=== PATIENT | female | born 1970 | race Caucasian/White ===

== ENCOUNTER 2018-11-17 15:17 | Outpatient (CLI) | payer OTHER ==
--- NOTE | 2018-11-17 16:21 | XRay Report ---
FINAL REPORT EXAM: XR KNEE 3V LT HISTORY: PAIN TECHNIQUE: Left knee three views PRIORS: None. FINDINGS: No fracture is identified. No dislocation seen. No evidence of joint effusion. Patella demonstrates n ormal positioning. No acute bony abnormality identified. IMPRESSION: Negative knee series
--- NOTE | 2018-11-17 16:22 | XRay Report ---
FINAL REPORT EXAM: XR SPINE CERVICAL 2-3V HISTORY: PAIN TECHNIQUE: Cervical spine three views PRIORS: None. FINDINGS: There is incomplete fusion C5-C6 vertebral bodies. This appears congenital. Remaining disc spaces are unremarkable. No acute fracture or malalignment identified. Posterior elements appear intact IMPRESSION: . Congenital variant with incomplete fusion C5-C6 No acute abnormality identified
== END 2018-11-17 15:18 | disposition home or self-care (01) ==
LOC: XRAY 15:17
DX: M43.22 Fusion of spine, cervical region (principal); M25.562 Pain in left knee; I10 Essential (primary) hypertension; E11.9 Type 2 diabetes mellitus without complications; Z90.49 Acquired absence of other specified parts of digestive tract
CPT/HCPCS: 72040

== ENCOUNTER 2022-01-16 09:14 | Emergency (ER) | payer BC, OTHER ==
[2022-01-16] MEDS ORDERED: KETOROLAC 10 MG TAB PO ONE (09:27)
[2022-01-16] MEDS ORDERED: CYCLOBENZAPRINE 10 MG TAB PO ONE (09:27)
[2022-01-16] MEDS ORDERED: DEXAMETHASONE 4 MG TAB PO ONE (09:27)
[2022-01-16 10:55] LABS: HCG Qualitative,Urine Negative (Negative)
[2022-01-16 10:59] LABS: Bilirubin,Urine NEG (Negative); Blood,Urine NEG (Negative); Color,Urine Straw (Yellow); Mucus,Urine FEW /HPF; Protein,Urine <15 mg/dL mg/dL (Negative); Urobilinogen,Urine < 2.0 mg/dL (<2.0)
[2022-01-16] MEDS ORDERED: CYCLOBENZAPRINE 10 MG TAB ONE (12:11)
[2022-01-16] MEDS ORDERED: KETOROLAC 10 MG TAB ONE ×2 (12:12)
--- NOTE | 2022-01-16 12:14 | Emergency Department Report ---
ED Back Pain/Injury HPI - General Chief Complaint: Back Pain/Injury Stated Complaint: LEFT SIDE PAIN Source: patient Limitations: No Limitations - History of Present Illness Initial Comments: Patient is a 51-year-old female with a history of hypertension, [id number] diabetes and anxiety and depression who presents to the ED with acute onset persistent nontraumatic left-sided mid posterior thoracic pain for the last 2 days. Patient states that she woke up with the pain and despite taking ibuprofen at home and Tylenol the pain has been persistent and worse especially with movement. Patient denies fall, traumatic injury, cough, chest pain or shortness of breath, nausea and vomiting, dysuria, urinary frequency and urgency, heavy lifting, fever, chills, numbness and tingling or weakness of upper and lower extremities bilaterally or abdominal pain. MD Complaint: back pain -: Sudden, days(s) (2) Similar Symptoms Previously: No Place: home Radiation: none Severity: severe Severity scale (0 -10): 7 Quality: sharp, aching Consistency: constant Improves With: none Worsens With: movement, walking Context: turning/twisting Associated Symptoms: denies other symptoms. denies: confusion, chest pain, numbness, difficulty walking, cough, difficulty urinating, diaphoresis, incontinence, constipation, headaches, abdominal pain, loss of appetite, rash, seizure, syncope - Related Data Previous Rx's Medication Instructions Recorded Last Taken Type Famotidine [Pepcid] 20 mg PO BID #28 tablet 07/25/17 Unknown Rx Ondansetron [Zofran TAB] 4 mg PO Q8HR PRN #12 tablet 07/25/17 Unknown Rx levoFLOXacin [Levaquin TAB] 500 mg PO Q24HR #7 tablet 07/25/17 Unknown Rx Naproxen Sodium [Naproxen Sodium 550 mg PO Q12H PRN #30 tab 01/16/22 Unknown Rx 550mg] methOCARBAMOL [Robaxin TAB] 750 mg PO Q8H PRN #30 tab 01/16/22 Unknown Rx traMADoL [Ultram] 50 mg PO Q6HR PRN #12 tablet 01/16/22 Unknown Rx Allergies Allergy/AdvReac Type Severity Reaction Status Date / Time No Known Allergies Allergy Verified 01/16/22 09:31 ED Review of Systems ROS: Stated complaint: LEFT SIDE PAIN Other details as noted in HPI Constitutional: denies: chills, fever Eyes: denies: eye pain, eye discharge, vision change ENT: denies: ear pain, throat pain Respiratory: denies: cough, shortness of breath, wheezing Cardiovascular: denies: chest pain, palpitations Endocrine: no symptoms reported Gastrointestinal: denies: abdominal pain, nausea, vomiting, diarrhea Genitourinary: denies: urgency, dysuria, discharge Musculoskeletal: back pain (Left sided mid posterior thoracic pain). denies: joint swelling, arthralgia Skin: denies: rash, lesions Neurological: denies: headache, weakness, paresthesias Psychiatric: denies: anxiety, depression Hematological/Lymphatic: denies: easy bleeding, easy bruising ED Past Medical Hx - Past Medical History Previous Medical History?: Yes Hx Hypertension: Yes Hx Congestive Heart Failure: No Hx Diabetes: Yes Hx Psychiatric Treatment: Yes (depression) Hx Asthma: No Hx COPD: No - Surgical History Hx Cholecystectomy: Yes Hx Appendectomy: Yes Additional Surgical History: Umbilical hernia repair - Social History Smoking Status: Never Smoker Substance Use Type: None - Medications Home Medications: Home Medications Medication Instructions Recorded Confirmed Last Taken Type Famotidine [Pepcid] 20 mg PO BID #28 tablet 07/25/17 Unknown Rx Ondansetron [Zofran TAB] 4 mg PO Q8HR PRN #12 tablet 07/25/17 Unknown Rx levoFLOXacin [Levaquin TAB] 500 mg PO Q24HR #7 tablet 07/25/17 Unknown Rx Naproxen Sodium [Naproxen Sodium 550 mg PO Q12H PRN #30 tab 01/16/22 Unknown Rx 550mg] methOCARBAMOL [Robaxin TAB] 750 mg PO Q8H PRN #30 tab 01/16/22 Unknown Rx traMADoL [Ultram] 50 mg PO Q6HR PRN #12 tablet 01/16/22 Unknown Rx ED Physical Exam - General Limitations: No Limitations General appearance: alert, in no apparent distress - Head Head exam: Present: atraumatic, normocephalic, normal inspection - Eye Eye exam: Present: normal appearance, PERRL, EOMI Pupils: Present: normal accommodation - ENT ENT exam: Present: normal exam, normal orophraynx, mucous membranes moist, TM's normal bilaterally, normal external ear exam - Neck Neck exam: Present: normal inspection, full ROM. Absent: tenderness - Respiratory Respiratory exam: Present: normal lung sounds bilaterally. Absent: respiratory distress, wheezes, rales, chest wall tenderness, accessory muscle use, decreased breath sounds, prolonged expiratory - Cardiovascular Cardiovascular Exam: Present: regular rate, normal rhythm, normal heart sounds. Absent: systolic murmur, diastolic murmur, rubs, gallop - GI/Abdominal GI/Abdominal exam: Present: soft, normal bowel sounds. Absent: tenderness, guarding, rebound, hyperactive bowel sounds, hypoactive bowel sounds, organomegaly - Extremities Exam Extremities exam: Present: normal inspection, full ROM, normal capillary refill. Absent: tenderness, pedal edema, joint swelling, calf tenderness - Back Exam Back exam: Present: normal inspection, full ROM, tenderness (Palpable left-sided mid posterior thoracic paraspinal musculoskeletal tenderness), muscle spasm, pa raspinal tenderness. Absent: CVA tenderness (R), CVA tenderness (L), vertebral tenderness - Neurological Exam Neurological exam: Present: alert, oriented X3, CN II-XII intact, normal gait, reflexes normal - Psychiatric Psychiatric exam: Present: normal affect, normal mood - Skin Skin exam: Present: warm, dry, intact, normal color. Absent: rash ED Course Vital Signs 01/16/22 09:28 Temperature 97.9 F Pulse Rate 98 H Respiratory 18 Rate Blood Pressure 167/87 O2 Sat by Pulse 100 Oximetry ED Medical Decision Making - Medical Decision Making This is a 51-year-old female with a history of hypertension, loz-[id number] diabetes and anxiety and depression who presents to the ED with acute onset persistent nontraumatic left-sided mid posterior thoracic pain for the last 2 days. Patient states that she woke up with the pain and despite taking ibuprofen at home and Tylenol the pain has been persistent and worse especially with movement. In the ED, patient is alert and oriented x3 and is not in any distress. Urinalysis is unremarkable. Based on the history and physical exam findings, the patient symptoms are likely due to musculoskeletal muscle strain or muscle spasm. Patient was discharged home on pain medications and muscle relaxants and advised to follow-up with her primary care physician in 7 to 10 days for reevaluation or return to the ED immediately if symptoms get worse. - Differential Diagnosis Muscle spasm; muscle strain; UTI Critical care attestation.: If time is entered above; I have spent that time in minutes in the direct care of this critically ill patient, excluding procedure time. ED Disposition Clinical Impression: Spasm of thoracic back muscle, Strain of muscle and tendon of back wall of thorax, initial encounter Disposition: 01 HOME / SELF CARE / HOMELESS Is pt being admited?: No Does the pt Need Aspirin: No Condition: Stable Instructions: Muscle Cramps and Spasms, [id number], Muscle Strain, [id number] Additional Instructions: Es probable que sree sntomas greta musculoesquelticos, ya que no hubo traumatismo, levantamiento de objetos pesados ??ni cada. Por lo tanto, tome la medicacin con alimentos, pineda muchos lquidos y cherry un seguimiento con arthur mdico de atencin primaria en 7 a 10 garcia para balta reevaluacin. Regrese al servicio de urgencias inmediatamente si los sntomas empeoran. Prescriptions: Naproxen Sodium [Naproxen Sodium 550mg] 550 mg PO Q12H PRN #30 tab PRN Reason: Pain , Severe (7-10) methOCARBAMOL [Robaxin TAB] 750 mg PO Q8H PRN #30 tab PRN Reason: Muscle Spasm traMADoL [Ultram] 50 mg PO Q6HR PRN #12 tablet PRN Reason: Pain Referrals: [facility] [Provider Group] - 3-5 Days Time of Disposition: 12:15 Print Language: BENINESE
[2022-01-16 14:10] VITALS: BP 150/88
== END 2022-01-16 13:10 | disposition home or self-care (01) ==
LOC: ED 09:14
DX: S39.012A Strain of muscle, fascia and tendon of lower back, initial encounter (principal); R25.2 Cramp and spasm; I10 Essential (primary) hypertension; E11.9 Type 2 diabetes mellitus without complications; F32.A Depression, unspecified; Z90.49 Acquired absence of other specified parts of digestive tract; Z79.899 Other long term (current) drug therapy; X58.XXXA Exposure to other specified factors, initial encounter; Y93.89 Activity, other specified; Y92.89 Other specified places as the place of occurrence of the external cause; Y99.8 Other external cause status
CPT/HCPCS: 81001; 81025; 99283